=== PATIENT | male | born 1960 | race Caucasian/White ===

== ENCOUNTER 2025-06-03 06:57 | Day surgery (SDC) | payer BC ==
[2025-06-03] MEDS ORDERED: Propofol 200 MG/20 ML SDV IV ONE (06:58)
[2025-06-03] MEDS ORDERED: Sodium Chloride 0.9% 10 ML Syringe FLUSH PRN (07:00)
[2025-06-03] MEDS: Lactated Ringers 1,000 ML IV SCH (07:47)
== END 2025-06-03 09:50 | disposition home or self-care (01) ==
LOC: FB.SDS 06:57
PROVIDERS: ATTEND Surgery
DX: Z12.11 Encounter for screening for malignant neoplasm of colon (principal)
CPT/HCPCS: 00812; 45378; 93005; A9270; J2003; J2704; J7120